=== PATIENT | male | born 1965 | race Caucasian/White ===

== ENCOUNTER → 2018-07-06 | Outpatient (CLI) | payer OTHER ==
[~2018-07-06] MED LIST: ATORVASTATIN CA20 MG PO; DIATRIZOATE MEGL/DIATRIZOA SOD 30 ML BTL PO ONE; IOPAMIDOL 370 MG/ML 200 ML INFUS..BTL INJ ONE; LIPITOR20 MG PO; ONE DAILY1 EAC1; PRILOSEC10 M1 PO; PROBIOTIC & AC1 EACH; SODIUM CHLORIDE 0.9% 50ML 50 ML ONE
[2018-07-06 11:51] LABS: BASOPHILS # (AUTO) 0.1 (0.0-0.1); BASOPHILS % 0.9 % (0.0-1.0); EOSINOPHILS # (AUTO) 0.3 (0.0-0.4); EOSINOPHILS % 4.9 % (0.0-6.0); HEMATOCRIT 44.6 % (38.2-49.6); HEMOGLOBIN 14.9 g/dL (14.0-18.0); LYMPHOCYTES # (AUTO) 1.6 (1.0-3.2); LYMPHOCYTES % 23.3 % (18.0-39.1); MEAN CORPUSCULAR HEMOGLOBIN 30.5 pg (28-32); MEAN CORPUSCULAR HGB CONC 33.4 g/dL (31-35); MEAN CORPUSCULAR VOLUME 91.2 fL (81-99); MONOCYTES # (AUTO) 0.6 (0.2-0.8); MONOCYTES % 8.8 % (4.4-11.3); NEUTROPHILS # (AUTO) 4.3 (2.1-6.9); PLATELET COUNT 288 x10e3/uL (140-360); RED BLOOD COUNT 4.89 x10e6/uL (4.3-5.7); RED CELL DISTRIBUTION WIDTH 13.3 % (11.7-14.4)
[2018-07-06 12:01] LABS: ALANINE AMINOTRANSFERASE 34 IU/L (0-55); ALBUMIN 3.9 g/dL (3.5-5.0); ALBUMIN/GLOBULIN RATIO 0.9 (0.8-2.0); ALKALINE PHOSPHATASE 194 IU/L (40-150); ANION GAP 15.3 mmol/L (8-16); BLOOD UREA NITROGEN 15 mg/dL (7-26); BUN/CREATININE RATIO 19 (6-25); CALCIUM 9.6 mg/dL (8.4-10.2); CARBON DIOXIDE 25 mmol/L (22-29); CHLORIDE 102 mmol/L (98-107); CREATININE, SERUM 0.78 mg/dL (0.72-1.25); EST GLOMERULAR FILTRATION RATE > 60 ML/MIN (60-); GLUCOSE 78 mg/dL (74-118); POTASSIUM 4.3 mmol/L (3.5-5.1); SODIUM 138 mmol/L (136-145)
--- NOTE | 2018-07-06 13:21 | Diagnostic Imaging Report ---
EXAM: CT of the abdomen and pelvis WITH contrast HISTORY: ADRENAL COLON CA, removal of adrenal gland May 2016, partial colectomy June 2016 COMPARISON: None available. TECHNIQUE: The abdomen and pelvis were scanned utilizing a multidetector helical scanner. Coronal and sagittal reformats are provided. PROTOCOL: Routine IV CONTRAST: 100 cc of Isovue-370. ORAL CONTRAST: Dilute Gastrografin RADIATION DOSE: Total DLP: 914.7 mGy*cm Estimated effective dose: (DLP x 0.015 x size factor) Dose modulation, iterative reconstruction, and/or weight based adjustment of the mA/kV was utilized to reduce the radiation dose to as low as reasonably achievable. COMPLICATIONS: None FINDINGS: LOWER THORAX: A 1.3 cm (AP) x 1.5 cm (ML) x 0.9 cm (CC) lobulated nodule abutting the right hemidiaphragm (series 2 image 13). Questionable internal fat density versus volume averaging. HEPATOBILIARY: A subtle ill-defined hypodensity within the right lobe of the liver measures approximately 2.5 cm in diameter (series 2 image 19). Adjacent peripheral mild intrahepatic biliary dilation extends towards the dome of the liver. The gallbladder is contracted. SPLEEN: No splenomegaly. PANCREAS: No focal masses or ductal dilatation. ADRENALS: The right adrenal gland is not visualized, compatible with prior removal. No left adrenal nodule. KIDNEYS/URETERS: No hydronephrosis, stones, or solid mass lesions. PELVIC ORGANS/BLADDER: The visualized pelvic organs appear unremarkable. PERITONEUM / RETROPERITONEUM: No free air or fluid. A 1.1 cm soft tissue density lateral to the inferior pole of the right kidney (series 2 image 47). A nonspecific 8 mm soft tissue density medial and anterior to the inferior aspect spleen, could reflect a small splenule (series 2 image 25). Similar 7 mm soft tissue density medial to the spleen (series 2 image 24). LYMPH NODES: Multiple nonspecific, nonenlarged bilateral inguinal lymph nodes, right greater than left. VESSELS: Scattered atherosclerotic vascular calcifications. GI TRACT: No distention or wall thickening identified. Postsurgical changes in the region of the distal sigmoid colon. BONES: No aggressive osseous lesion or acute fracture. SOFT TISSUES: Unremarkable. IMPRESSION: 1. An ill-defined 2.5 cm hypodensity within the liver with adjacent mild intrahepatic biliary dilation, worrisome for a metastatic lesion given the provided history. A MRI of the abdomen with and without contrast would provide further imaging characterization. 2. A 1.5 x 0.9 cm lobulated right common and a nodule, the differential considerations include a small pulmonary hamartoma, metastatic lesion, or noncalcified granuloma. Recommend a follow-up CT of the chest without contrast to completely evaluate the chest for potential additional nodules. 3. Multiple small nonspecific lymph nodes and intra-abdominal soft tissue nodular densities, could be splenules, postsurgical changes, nonspecific lymph nodes, and/or additional metastatic foci. Signed by: Dr. Raj Hopson D.O., M.M.M. on 07/06/2018 1:18 PM
== END ==
LOC: CT 11:02
PROVIDERS: ATTEND Surgery
DX: Z85.038 Personal history of other malignant neoplasm of large intestine (principal); Z85.858 Personal history of malignant neoplasm of other endocrine glands
CPT/HCPCS: 36415; 74177; 80053; 82378; 85025; 93005; Q9663; Q9967

== ENCOUNTER → 2018-07-15 | Outpatient (CLI) | payer OTHER ==
[~2018-07-15] MED LIST changes: -DIATRIZOATE MEGL/DIATRIZOA SOD 30 ML BTL PO ONE; +GADOBENATE DIMEGLUMINE 1 ML IV ONE; -IOPAMIDOL 370 MG/ML 200 ML INFUS..BTL INJ ONE; -SODIUM CHLORIDE 0.9% 50ML 50 ML ONE
--- NOTE | 2018-07-15 17:08 | Diagnostic Imaging Report ---
EXAM: MRI of the abdomen with and without contrast. INDICATION: Hepatic lesion seen on prior CT. COMPARISON: CT dated 07/06/2018 TECHNIQUE: Multiplanar and multisequence imaging was performed of the abdomen, without and with administration of 20 cc of MultiHance. FINDINGS: LOWER THORAX: Unremarkable. HEPATOBILIARY: Approximately 3.3 x 3.5 cm mildly T2 hyperintense, T1 hypointense peripherally enhancing segment 8 hepatic lesion (series 10, image 68). Mild biliary dilatation distal to this lesion. A 0.8 cm segment 2 left hepatic lobe enhancing lesion with corresponding T2 hyperintensity. GALLBLADDER: Contracted, limiting evaluation. No evidence of gallstones. SPLEEN: No splenomegaly. PANCREAS: No focal masses or ductal dilatation. ADRENALS: No adrenal nodules KIDNEYS/URETERS: Kidneys enhance symmetrically. No hydronephrosis. Subcentimeter left renal cysts. GI TRACT: Visualized bowel loops are unremarkable. No evidence of bowel obstruction. LYMPH NODES: No lymphadenopathy. VESSELS: Unremarkable. BONES: Unremarkable. SOFT TISSUES: Unremarkable. IMPRESSION: 3.5 cm peripherally enhancing segment VIII hepatic lesion is highly concerning for metastatic disease. 0.8 cm segment II left hepatic lobe enhancing lesion is indeterminate and could represent a flash filling hemangioma. Recommend attention on follow-up examination. Signed by: Dr. Robert Maldonado MD on 07/15/2018 5:05 PM
== END ==
LOC: MRI 14:52
PROVIDERS: ATTEND Surgery
DX: K76.9 Liver disease, unspecified (principal)
CPT/HCPCS: 74183; A9577